=== PATIENT | male | born 1935 | race Asian ===

== ENCOUNTER 2018-05-03 14:00 | Inpatient (IN) | payer OTHER ==
[2018-05-03] MEDS ORDERED: BIVALIRUDIN 250 MG/5 ML VIAL IV ONE (14:26)
[2018-05-03] MEDS ORDERED: IOPAMIDOL (ISOVUE-370) 150 ML BTL IV ONE (14:58)
[2018-05-03] MEDS ORDERED: CLOPIDOGREL BISULFATE 75 MG TAB ONE (15:28)
[2018-05-03] MEDS ORDERED: ONDANSETRON DISINTEGRATING 4 MG TAB PO PRN (17:42)
[2018-05-03] MEDS ORDERED: CLOPIDOGREL BISULFATE 75 MG TAB PO ONE (17:45)
--- NOTE | 2018-05-03 19:34 | CPIP ---
[f rep st] INVASIVE CARDIAC PROCEDURE DATE OF PROCEDURE: 05/03/2018 PROCEDURE PERFORMED: 1. Selective coronary angiography. 2. Left heart catheterization. 3. Left ventriculogram. 4. Percutaneous transluminal coronary angioplasty and stent placement of the left anterior descending with the use of a 3.0 x 16 Synergy drug-eluting stent. 5. Percutaneous transluminal coronary angioplasty and stent placement of the left circumflex with the use of a 3.0 x 28 Synergy drug-eluting stent. 6. A TR band arteriotomy repair. This was a right radial artery approach. COMPLICATIONS: None. PROCEDURE IN DETAIL: After informed consent was obtained verbally given the urgent and emergency status of the situation, the patient was taken emergently from the emergency department room #2 to the cardiac catheterization laboratory where the region of the right groin and right wrist were cleaned, prepped, and draped in sterile fashion. Approximately 3 cc of 1% lidocaine was used for local anesthesia. A 6-[place] slender sheath was placed in the right radial artery and the patient then underwent the previously mentioned diagnostic procedure with the use of JL4 and R4 curved coronary catheters. Ultimately, 6- [place] JL4 and 6-[place] JR4 guiding catheters were also utilized. A standard pigtail catheter was used for left heart catheterization and standard over-the- wire exchange technique was utilized for all catheter exchanges. The left main coronary lumen is approximately 8 mm in size with 30% stenosis in the ostial takeoff from the left main coronary cusp. The left main bifurcates into an LAD and circumflex system. The circumflex vessel is approximately 3 mm in size proximally, giving rise to important obtuse marginal branch and has a 90 % obstruction in its distal segment with evidence of DEEP-3 flow. The LAD arises in its usual location and gives rise to an early diagonal branch which serves as a functional ramus vessel. The 2nd diagonal vessel is actually 100% occluded. The LAD proper is 100% occluded on the initial injections with initially DEEP 0 flow and with 2nd injections, there was DEEP 1 flow with a 99% obstruction of the LAD. We turned our attention to the lesion in question. The lesion was crossed with the use of a 6-[place] JL4 guide catheter and a 0.014 Intuition wire. The vessel was ballooned open with a 2-0 x 16 Emerge balloon and was subsequently stented with a 3.0 x 16 Synergy drug-eluting stent with excellent angiographic result, 0% residual stenosis status post PTCA and stent placement. We did attempt to reopen the diagonal proximally. However, the LAD antegrade flow was limited and becoming less brisk and, therefore, I felt it was best to proceed with stenting of the LAD. We then turned our attention to the left circumflex. The same Intuition wire was advanced across the 90% lesion in the distal circumflex and was ballooned up with a 2-0 x 15 Emerge balloon. The vessel was then stented with a 3.0 x 28 Synergy drug-eluting stent with a 5% residual stenosis status post PTCA and stent placement. There was DEEP 3 flow pre and post. A 6-[place] JR4 guiding catheter was used for gaining access to the right coronary artery which is dominant giving rise to posterior descending and 2 posterolateral ventricular branches. There was 60% to 70% stenosis in the mid right coronary artery, which we elected not to intervene upon at the present time because it did appear to be a chronic lesion. The patient underwent left heart catheterization demonstrating elevated left ventricular end-diastolic pressure measured at 26 mmHg. The patient underwent left ventriculogram in the RING projection, demonstrating preserved left ventricular systolic function with mild anterolateral wall motion abnormalities and mild anterior wall hypokinesis. Overall ejection fraction was preserved at 60%. IMPRESSION: 1. Successful acute infarction angioplasty for the patient with severe white earth vessel coronary disease. The residual stenosis of the left anterior descending stented segment was 5%. The proximal diagonal vessel was not reopened. 2. Successful angioplasty and stent implantation of the left circumflex. There is residual disease in the mid right coronary artery as previously described in the body of this report. The patient has overall relatively well preserved ejection fraction at the present time. The patient should be admitted to the ICU for monitoring of his rhythm. The patient will require Inspira as an aldosterone antagonist given the anterior location of his NM and the elevated LVEDP suggestive of threatened heart failure. The patient will benefit from a beta kassi and ARB medication. We may have to drop off the Norvasc for blood pressure associated reasons and the atorvastatin 40 will be continued. Copy requested to: [facility] /[id number]/MODL MTDD
--- NOTE | 2018-05-03 19:34 | GHP ---
[f rep st] HISTORY AND PHYSICAL CHIEF COMPLAINT: "I am having chest tightness." HISTORY OF PRESENT ILLNESS: The patient has a history of chronic pain, hypertension, dyslipidemia, and began to have discomfort and tightness in the middle of his chest last night. His noticed that he was uncomfortable. He complained that he had developed indigestion in the late evening yesterday and by mid morning, began to have relatively severe chest tightness and pressure. His , who is a retired nurse, noticed that he was clammy and sweaty and then called 911. The patient presented via EMS ambulance to the [facility] where an EKG was obtained en route demonstrating right bundle branch block and acute ST-segment elevation injury pattern in the anterior lateral leads. The patient was then transported emergently to the [facility] where I was asked to see the patient for a cardiac alert. At the time of my arrival, the patient was somewhat stoic, but obviously uncomfortable. MEDICATIONS: Include: 1. Morphine 15 mg p.o. q.6 hours as needed for pain. 2. Atorvastatin 40 mg p.o. daily. 3. Metoprolol extended release 25 mg p.o. daily. 4. Amlodipine 10 mg p.o. daily. 5. Losartan 100 mg p.o. daily. 6. Pradaxa 150 p.o. twice daily. ALLERGIES: He is not known to be allergic to medications. PAST MEDICAL HISTORY: Significant for: 1. Hypertension. 2. Dyslipidemia. 3. Paroxysmal atrial fibrillation. 4. Coronary artery disease. PAST SURGICAL HISTORY: Noncontributory. FAMILY HISTORY: Noncontributory. SOCIAL HISTORY: Pertinent for the fact that he is a retired sql programmer analyst, lives in a private residence with his of many years. He is a former smoker, but quit many years ago. He does not abuse alcohol or illicit drugs. PHYSICAL EXAMINATION: VITAL SIGNS: His blood pressure was 118/72, his pulse was 56 and regular, respirations 16 unlabored. Occasional PVCs were present. NECK: Reveals no JVD. HEART: Reveals normal S1 and S2 without S3, S4. He does have a soft systolic murmur. LUNGS: Clear to auscultation bilaterally. ABDOMEN: Benign with positive bowel sounds. It is nondistended, nontender. EXTREMITIES: Warm, dry, and well perfused without significant peripheral edema. LABORATORY STUDIES: Pending because of a power outage here at the hospital and difficulty with obtaining laboratory reports. The EKG demonstrates sinus bradycardia with acute ST-segment elevation infarction involving the anterior lateral leads V1 through V6 with associated right bundle branch block. It is not known if the right bundle branch block is new. IMPRESSION AND PLAN: Acute anterolateral ST-segment elevation infarction. The patient would be best served with a primary interventional strategy to reopen his coronary. I have discussed the risks and benefits of this procedure with the patient who understands and is willing to proceed as planned. I would recommend a radial approach given the fact that the patient is on active anticoagulation with Pradaxa 150 p.o. twice daily. /[id number]/MODL MTDD
[2018-05-03 20:02] LABS: CREATINE KINASE 146 IU/L (0-224)
[2018-05-03 20:11] LABS: PLATELET COUNT 161 10^3/uL (150-400)
[2018-05-03 20:19] LABS: INR 1.56 (0.83-1.16)
[2018-05-03] MEDS: CARVEDILOL 3.125 MG TAB PO SCH ×2 (21:34→21:52)
[2018-05-03] MEDS: ASPIRIN EC 325 MG TAB PO SCH (21:52)
[2018-05-03] MEDS: ATORVASTATIN CALCIUM 40 MG TAB PO SCH (21:52)
[2018-05-03] MEDS: LOSARTAN POTASSIUM 50 MG TAB PO SCH (21:52)
[2018-05-03] MEDS: EPLERENONE 25 MG TAB PO SCH (22:06)
[2018-05-04 00:53] LABS: CREATINE KINASE 694 IU/L (0-224)
[2018-05-04 06:40] LABS: CREATINE KINASE 472 IU/L (0-224)
--- NOTE | 2018-05-04 06:57 | PDMN ---
Medical Necessity Medical necessity: MCG M230 UT- 2 days acute STEMI - pt taken urgently to catheterization laboratory technician - PCI to LAD, L circ., TR band arteriotomy repair,
[2018-05-04] MEDS: ATORVASTATIN CALCIUM 40 MG TAB PO SCH (08:32)
[2018-05-04] MEDS: CLOPIDOGREL BISULFATE 75 MG TAB PO SCH (08:32)
[2018-05-04] MEDS: LOSARTAN POTASSIUM 50 MG TAB PO SCH (08:32)
[2018-05-04] MEDS: ASPIRIN EC 325 MG TAB PO SCH (08:32)
[2018-05-04] MEDS: EPLERENONE 25 MG TAB PO SCH (08:32)
[2018-05-04] MEDS: CARVEDILOL 3.125 MG TAB PO SCH ×2 (08:32→17:22)
--- NOTE | 2018-05-04 10:38 | PDCARPN ---
Cardiology Progress Note Chief Complaint: CP Assessment/Plan: Assessment: The patient is a 83 y/o M who was admitted by cardiac alert and found to be having a acute anterolateral MD s/p stenting to the LAD and LCX. His troponin peaked at 10.7 and trended down to 10.9 this morning. He denies any further chest discomfort and has remained in NSR by tele. He has a history of PAF and was on Pradaxa for anticoagulation which is currently on hold. He is a [facility] patient. Plan: 1. Acute anterolateral STEMI- s/p stenting to the LAD and LCX. He will continue Aspirin and Plavix. He was started on Coreg, Inspra, and Losartan and tolerating the medications well. Echo is pending. 2. HLP- continue Lipitor 3. PAF- Likely resume Pradaxa tomorrow morning. Transfer to PCU. 05/04/18 10:40 Subjective: He denies any further CP, SOB, or palpitations. He has no complaints. Objective: Vital Signs (8 Hrs) Temp Pulse Resp BP Pulse Ox 05/04/18 08:00 37.1 C 68 20 106/64 93 05/04/18 07:00 59 L 20 129/64 H 92 05/04/18 05:00 68 18 119/61 90 L 05/04/18 04:00 36.9 C 58 L 18 126/67 H 91 L 05/04/18 03:00 59 L 18 116/59 L 92 Intake/Output (24 Hrs) 05/03/18 05/04/18 05/05/18 05:59 05:59 05:59 Intake Total 1000 Output Total 2150 550 Balance -1150 -550 Intake: Oral (ml) 1000 Output: Urine (ml) 2150 550 Urinal 2150 550 Other: Weight 93 kg Number of Voids Urinal 1 1 Result Diagrams: 05/03/18 14:00 05/03/18 14:00 Cardiac Labs: Cardiac Lab Results (72 Hrs) 05/04/18 05/04/18 05/03/18 05:20 00:00 21:30 CK-MB (CK-2) Fraction 30.80 H 46.40 H Troponin I 10.900 H 17.700 H Telemetry: NSR without arrhythmias. - Physical Exam Constitutional: no apparent distress Cardiovascular: regular rate and rhythm, no murmurs, no rubs, other (right wrist is clean intact without infection.) Respiratory: clear to auscultate bilat, no crackles, no wheezes Skin: no edema Neurologic: AAOx3 ICD10 Worksheet Patient Problems: Problems Problem Status Onset Chest pain Acute
--- NOTE | 2018-05-04 11:44 | ECHO ---
[email or web address] [address] [address] Main: [phone] Echocardiography Examination Transthoracic Name: JASON CARBAJAL MR#: [id number] Study Date: 05/04/2018 Study Time: 07:44 AM Date of : 1935 Age: 83 year(s) Height: 205.7 cm (81 in.) Weight: 92.99 kg (205 lb.) BSA: 2.34 m2 Gender: Male Examination: Echo Contrast: Image Quality: Adequate Rhythm: Heart Rate: BP: 129 mmHg/64 mmHg Indication: Routine post STEMI Procedure Staff Referring Physician: Emt I/85: Agnes Vasquez [facility] Reading Physician: Giacomo Garcia MD Requesting Provider: Ordering Physician: Giacomo Garcia MD Indication: Routine post STEMI Measurements Chambers AV/MV Label Value Normal Value Label Value Normal Value EF lower range (%) 60 % AR PHT 0.52 s EF upper range (%) 65 % AR PHT 519 ms LVDd, 2D 5.5 cm (4.2cm - 5.9cm) AR Vmax 3.98 m/s LVEF, BP 66 % (55% - 70%) AV PGmean 6 mmHg LVEF, MOD2 68 % (55% - 70%) AV Vmax 1.7 m/s LVEF, MOD4 63 % (55% - 70%) MV A Vmax 0.78 m/s LA Volume, A4C 50 ml (16ml - 34ml) MV E' lateral 0.06 m/s LAD Index, 2D 1.62 cm/m2 MV E' mean 0.06 m/s LADs, 2D 3.8 cm (3cm - 4cm) MV E' septal 0.06 m/s LAESV index, MOD4 21.4 ml/m2 MV E Vmax 0.57 m/s Additional Vessels MV E/A 0.73 Label Value Normal Value MV E/E' lateral 9.3 AoRoot, MM 3.5 cm (2.2cm - 3.7cm) MV E/E' mean 9.5 MV E/E' septal 10.1 (0.45 - 1.25) TV/PV Label Value Normal Value RA Pressure 5 mmHg RVSP 40 mmHg TR Pmax 35 mmHg Patient: JASON CARBAJAL Study Date: 05/04/2018 Page 1 of 3 07:44 AM TR Vmax 2.96 m/s Conclusions The findings are consistent with recent anteroseptal KS s/p acute infarct angioplasty and stent implantation. No evidence of early complication post KS. Left Ventricle: LV apical septal/inferior/mid inferoseptal mitchell appears akinetic. All LV remaining segments have normal segmental motion.. EF range is estimated at 60 % - 65 %. There is mild concentric left ventricular hypertrophy. Right Ventricle: Right ventricular systolic function is normal. Mitral Valve: Mild mitral annular calcification.. Mild mitral regurgitation. Aortic Valve: Mild aortic regurgitation is present. There is no aortic stenosis. Aortic leaflets exhibit mild calcification. Tricuspid Valve: RVSP is 40mmHG.. Mild tricuspid regurgitation. Findings Left Ventricle: LV apical septal/inferior/mid inferoseptal mitchell appears akinetic. All LV remaining segments have normal segmental motion.. Left ventricle is normal in size. The ejection fraction, measured by Simpsons method, is 66 %. EF range is estimated at 60 % - 65 %. There is mild concentric left ventricular hypertrophy. Left ventricular diastolic function parameters are normal. IVS: The septum is intact. Right Ventricle: Normal size right ventricle. Right ventricular wall thickness is normal. Right ventricular systolic function is normal. Left Atrium: The left atrium is normal in size. IAS: Normal appearing atrial septum. Right Atrium: The right atrium is normal in size. Mitral Valve: Mild mitral annular calcification.. Normal . Mild mitral regurgitation. No mitral valve stenosis. Aortic Valve: Mild aortic regurgitation is present. There is no aortic stenosis. Aortic leaflets exhibit mild calcification. Tricuspid Valve: RVSP is 40mmHG.. Tricuspid valve leaflets are normal in appearance and function. Mild tricuspid regurgitation. No tricuspid valve stenosis. Right Ventricular systolic pressure is measured at 40 mmHg. Pulmonary artery pressure normal. Pulmonic Valve: Patient: JASON CARBAJAL Study Date: 05/04/2018 Page 2 of 3 07:44 AM Pulmonic valve is poorly visualized. Pulmonic leaflets exhibit normal cuspal separation. No pulmonic valve regurgitation is evident. There is no pulmonic valve stenosis. Aorta: The aorta is normal. The aortic root size in M-mode measures 3.5 cm. Aorta Measurements AoRoot, MM is 3.5 cm. Pulmonary Artery: The pulmonary artery morphology appears normal. IVC: The inferior vena cava is normal in size and course. Pericardium: No pericardial effusion. No pleural effusion present. Exam Details Procedure Ordered: Echo Procedure Status: Routine study Image Quality: Adequate Facility Location: Cardiac Echo 1 (No Signature Object) Patient: JASON CARBAJAL Study Date: 05/04/2018 Page 3 of 3 07:44 AM [id number]
--- NOTE | 2018-05-04 16:16 | EDPHY ---
H & P Time Seen by Provider: 05/03/18 14:00 HPI/ROS: HPI Chest pain. Cardiac alert. 83-year-old male by ambulance. Cardiac alert called in the field secondary to contiguous ST elevation on EKG. Chest pain last night at 9:30 p.m., resolved then came back this morning. No prior history of coronary artery disease. History of hypertension and hyperlipidemia. Patient's chest pain resolved on arrival to the emergency department. Given aspirin in the field. ROS: Constitutional: No fever, no chills. No weakness. Eyes: No discharge. No changes in vision. ENT: No sore throat. No nasal congestion or rhinorrhea. Respiratory: No cough. No shortness of breath. Cardiac: As above, no palpitations. Gastrointestinal: No abdominal pain, no vomiting, no diarrhea. Genitourinary: No hematuria. No dysuria or increased frequency with urination. Musculoskeletal: No back pain. No neck pain. No myalgias or arthralgias. Skin: No rashes. Neurological: No headache. No focal weakness or altered sensation. Past medical history: Hypertension, hyperlipidemia, chronic back pain for which she takes morphine sulfate. Social history: Nonsmoker. No alcohol. Here with his . Physical Exam: General Appearance: Alert, no distress. This patient is responding to questions appropriately and in full sentences. This patient appears well- hydrated and well-nourished. Eyes: Pupils equal and round no pallor or injection. No lid edema, erythema or injection. Respiratory: There are no retractions, lungs are clear to auscultation with good air movement bilaterally. Cardiovascular: Regular rate and rhythm. No murmur appreciated. Gastrointestinal: Abdomen is soft and nontender, no masses, bowel sounds normal. No focal tenderness at McBurney's point. No Nelson sign. Neurological: Motor sensory function is grossly intact. Cranial nerves are normal. Skin: Warm and dry, no rashes. Musculoskeletal: Neck is supple and nontender. Extremities are symmetrical. All joints range without pain or impingement. Psychiatric: No agitation. No depression. Database: EKG: EKG from field was interpreted by myself and Dr. Giacomo Garcia set he was present in the examination room on the patient's arrival. Acute injury pattern noted. Imaging: Procedures: Emergency department course: Triage vital signs reviewed. Dr. Giacomo Jose of the cardiology service was present in the examination room on the patient's arrival. EKG from the field reviewed and the patient was taken straight up to the dental lab technician. The patient's remaining emergency department course under my care was uneventful. Patient was transferred to the dental lab technician in stable condition. Differential Diagnosis: The differential diagnosis on this patient includes but is not limited to acute myocardial infarction. Pulmonary embolism, aortic dissection, pericarditis, myocarditis unlikely. This represents a partial list of diagnoses considered. These considerations are based on history, physical exam, past history, reassessment and diagnostic testing. Smoking Status: Never smoked Constitutional: Initial Vital Signs Heart Rate 79 05/03/18 14:00 Respiratory Rate 48 H 05/03/18 14:00 O2 Sat (%) 96 05/03/18 14:00 O2 Delivery Mode Room Air Allergies/Adverse Reactions: codeine Allergy (Verified 05/03/18 21:29) Other-Enter Comments Home Medications: Medication Instructions Recorded Acetaminophen [Tylenol ES 500 mg 1,000 mg PO BID 05/03/18 (*)] Atorvastatin Calcium [Lipitor 40 40 mg PO HS 05/03/18 mg (*)] Dabigatran Etexilate Mesyl 150 mg PO BID 05/03/18 [Pradaxa 150 MG (*)] Losartan Potassium 100 mg PO DAILY 05/03/18 Metoprolol Succinate Xr [Toprol Xl 25 mg PO BID 05/03/18 25 mg (*)] amLODIPine BESYLATE [Norvasc 10 mg 10 mg PO HS 05/03/18 (*)] morphINE SR [Ms Contin/Oramorph 15 15 mg PO HS 05/03/18 mg (*)] morphINE SR [Ms Contin/Oramorph 15 30 mg PO DAILY@08 05/03/18 mg (*)] Medical Decision Making - Data Points Laboratory Results: Laboratory Results 05/03/18 14:00 05/03/18 14:00 Medications Given: Aspirin Buffered (Aspirin Ec) 325 mg PO DAILY [facility] Stop: 10/30/18 17:44 Last Admin: 05/04/18 08:32 Dose: 325 mg Atorvastatin Calcium (Lipitor) 40 mg PO DAILY [facility] Stop: 10/30/18 17:44 Last Admin: 05/04/18 08:32 Dose: 40 mg Carvedilol (Coreg) 3.125 mg PO BIDMEAL [facility] Stop: 10/30/18 13:59 Last Admin: 05/04/18 08:32 Dose: 3.125 mg Clopidogrel Bisulfate (Plavix) 75 mg PO DAILY [facility] Stop: 10/31/18 08:59 Last Admin: 05/04/18 08:32 Dose: 75 mg Eplerenone (Inspra) 25 mg PO DAILY [facility] Stop: 10/30/18 17:44 Last Admin: 05/04/18 08:32 Dose: 25 mg Losartan Potassium (Cozaar) 50 mg PO DAILY [facility] Stop: 10/30/18 17:44 Last Admin: 05/04/18 08:32 Dose: 50 mg Discontinued Medications Clopidogrel Bisulfate (Plavix) 600 mg PO ONCE ONE Stop: 05/03/18 17:46 Last Admin: 05/03/18 20:22 Dose: Not Given Departure - Departure Disposition: To OP Cath/Surgery Clinical Impression: Chest pain, Acute coronary syndrome
[2018-05-04 20:38] LABS: CREATINE KINASE 339 IU/L (0-224)
[2018-05-05] MEDS ORDERED: morphINE SR 15 MG TAB PO ONE (01:45)
[2018-05-05] MEDS: ATORVASTATIN CALCIUM 40 MG TAB PO SCH (08:00)
[2018-05-05] MEDS: LOSARTAN POTASSIUM 50 MG TAB PO SCH (08:00)
[2018-05-05] MEDS: ASPIRIN EC 325 MG TAB PO SCH (08:03)
[2018-05-05] MEDS: EPLERENONE 25 MG TAB PO SCH (08:03)
[2018-05-05] MEDS: CLOPIDOGREL BISULFATE 75 MG TAB PO SCH (08:03)
[2018-05-05] MEDS: CARVEDILOL 3.125 MG TAB PO SCH (08:03)
[2018-05-05] MEDS ORDERED: CARVEDILOL 3.125 MG TAB PO ONE (10:43)
--- NOTE | 2018-05-05 11:20 | PDCARPN ---
Cardiology Progress Note Chief Complaint: Back pain Assessment/Plan: Assessment: The patient is a 83 y/o M who was admitted by cardiac alert and found to be having a acute anterolateral MD s/p stenting to the LAD and LCX. His troponin peaked at 17.7 and trended down to 10.9 this morning. He denies any further chest discomfort but had NSVT on tele last night. He has a history of PAF and was on Pradaxa for anticoagulation which is currently on hold. He is a [facility] patient. Echo shows EF of 60-65%. Plan: 1. Acute anterolateral STEMI- s/p stenting to the LAD and LCX. He will continue Aspirin and Plavix. He was started on Coreg, Inspra, and Losartan and tolerating the medications well. 2. HLP- continue Lipitor 3. PAF- Currently in NSR. Resume Pradaxa tomorrow morning and reduce Aspirin to 81mg daily. 4. NSVT- multiple runs last night. Coreg titrated. Will keep one additional day to monitor for further arrhythmias. 5. Back pain-Will resume home pain meds and try to get him a different bed. Likely d/c home tomorrow with follow up with [facility] in 1-2 weeks. 05/05/18 11:27 Subjective: He denies any CP or SOB but is complaining of back pain related to sleeping in a uncomfortable bed. Objective: Vital Signs (8 Hrs) Temp Pulse Resp BP Pulse Ox 05/05/18 08:03 101 H 142/83 H 05/05/18 08:00 37.1 C 98 20 128/73 H 94 05/05/18 03:51 36.8 C 90 16 146/85 H 96 Intake/Output (24 Hrs) 05/04/18 05/05/18 05/06/18 05:59 05:59 05:59 Intake Total 1000 700 Output Total 2150 550 Balance -1150 150 Intake: Oral (ml) 1000 700 Output: Urine (ml) 2150 550 Urinal 2150 550 Other: Weight 93 kg 93 kg Number of Voids Urinal 1 1 Result Diagrams: 05/03/18 14:00 05/03/18 14:00 Cardiac Labs: Cardiac Lab Results (72 Hrs) 05/04/18 05/04/18 05/04/18 19:15 14:25 05:20 CK-MB (CK-2) Fraction 16.60 H 30.80 H Troponin I 5.170 H 7.030 H 10.900 H 05/04/18 05/03/18 00:00 21:30 CK-MB (CK-2) Fraction 46.40 H Troponin I 17.700 H Telemetry: multiple runs of NSVT - Physical Exam Constitutional: no apparent distress Cardiovascular: regular rate and rhythm, no murmurs, no rubs, no gallops Respiratory: clear to auscultate bilat, no crackles, no wheezes Skin: no edema Neurologic: AAOx3 ICD10 Worksheet Patient Problems: Problems Problem Status Onset Acute coronary syndrome Acute Chest pain Acute
[2018-05-05] MEDS: morphINE SR 30 MG TAB PO SCH (11:41)
[2018-05-05] MEDS: ACETAMINOPHEN 500 MG TAB PO SCH ×2 (11:41→20:40)
--- NOTE | 2018-05-05 12:05 | CPEKG ---
Test Reason : acute anterior RI Blood Pressure : / mmHG Vent. Rate : 052 BPM Atrial Rate : 051 BPM P-R Int : 221 ms QRS Dur : 149 ms QT Int : 483 ms P-R-T Axes : -25 -79 000 degrees QTc Int : 450 ms Sinus rhythm Prolonged HI interval RBBB and LAFB Probable anteroseptal infarct, old Confirmed by Giacomo Garcia ([id number]) on 05/05/2018 12:05:38 PM Referred By: Giacomo Garcia Confirmed By:Giacomo Garcia
[2018-05-05] MEDS ORDERED: PNEUMOC 13-VAL CONJ-DIP CRM/PF 0.5 ML SYR (PREVNAR 13) IM ONE (12:57)
--- NOTE | 2018-05-05 14:34 | CPEKG ---
Test Reason : OPEN Blood Pressure : / mmHG Vent. Rate : 062 BPM Atrial Rate : 063 BPM P-R Int : 214 ms QRS Dur : 144 ms QT Int : 455 ms P-R-T Axes : -51 -86 -01 degrees QTc Int : 462 ms Sinus or ectopic atrial rhythm Borderline prolonged SC interval Right bundle branch block Probable inferior infarct, age indeterminate Probable anteroseptal infarct, recent Confirmed by Giacomo Garcia ([id number]) on 05/05/2018 2:34:22 PM Referred By: Giacomo Garcia Confirmed By:Giacomo Garcia
--- NOTE | 2018-05-05 14:41 | ASMTCMCOM ---
CM Note CM Note Notes: 05/05/2018 Case Management Note Pt admitted for cardiac alert, taken to industrial laborer from ED. Pt has history of HTN and hyperlipidemia. There are no therapy evals ordered today. Met w/pt today to discuss d/c needs. Pt lives with his Diana. His 2 sons, Jabari and Fernando, live in [place]. PCP is Dr. Alfredo with [facility] in the [place] office. Notified [facility] repatriation [phone] of admit at pt request. If pt requires home care, must use [facility] contracted home care agencies. Case Management d/c poc: anticipating independent with follow up as directed. Case Management available if needs change. Date Signed: 05/05/2018 02:40 PM Electronically Signed By:Gudelia Hunter RN
[2018-05-05] MEDS: CARVEDILOL 6.25 MG TAB PO SCH (17:35)
[2018-05-05] MEDS ORDERED: morphINE SR 15 MG TAB PO SCH (21:00)
[2018-05-06] MEDS ORDERED: DABIGATRAN ETEXILATE MESYL 150 MG CAP PO SCH (09:00)
[2018-05-06] MEDS ORDERED: ASPIRIN 81 MG CHEWABLE TAB PO SCH (09:00)
[2018-05-06] MEDS: ACETAMINOPHEN 500 MG TAB PO SCH (09:13)
[2018-05-06] MEDS: LOSARTAN POTASSIUM 50 MG TAB PO SCH (09:13)
[2018-05-06] MEDS: EPLERENONE 25 MG TAB PO SCH (09:13)
[2018-05-06] MEDS: CLOPIDOGREL BISULFATE 75 MG TAB PO SCH (09:13)
[2018-05-06] MEDS: ATORVASTATIN CALCIUM 40 MG TAB PO SCH (09:13)
[2018-05-06] MEDS: CARVEDILOL 6.25 MG TAB PO SCH (09:13)
[2018-05-06] MEDS: morphINE SR 30 MG TAB PO SCH (09:13)
[2018-05-06 12:10] VITALS: BP 116/73
--- NOTE | 2018-05-06 13:20 | ASMTLACE ---
LACE Length of stay for Answers: 2 days current admission Acuity / Level of Answers: Yes Care: Did the patient have an inpatient admission? Comorbidities - select Answers: Coronary Artery Disease all that apply Opioid dependence / Chronic pain Other Notes: HTN; AFib # of Emergency department Answers: 1-2 visits in the last 6 months Score: 13 Date Signed: 05/06/2018 01:20 PM Electronically Signed By:Gudelia Hunter RN
--- NOTE | 2018-05-06 13:30 | ASDISCHSUM ---
Discharge Information Plan Status:Home with No Needs Medically Cleared to Leave:05/06/2018 Discharge Date:05/06/2018 CM D/C Disposition:Home, Routine, Self-Care ADT D/C Disposition:Home, Routine, Self-Care Projected Discharge Date:05/06/2018 Transportation at D/C:Friend Discharge Delay Reason: Follow-Up Date:05/06/2018 Discharge Slot: Final Diagnosis: Placement Information Patient Contact Information Contact Name:JANETH Relationship: Address:[address] Work Phone: City:[place] Alternate Phone: State/Zip Code:[place] [address] Email: Financial Information Financial Class:Medicare Advantage Plans Primary Plan Desc:[employer] [place] IP Primary Plan Number:[id number] Secondary Plan Desc: Secondary Plan Number: Assessment Information LACE LACE Length of stay for Answers: 2 days current admission Acuity / Level of Answers: Yes Care: Did the patient have an inpatient admission? Comorbidities - select Answers: Coronary Artery Disease all that apply Opioid dependence / Chronic pain Other Notes: HTN; AFib # of Emergency department Answers: 1-2 visits in the last 6 months Score: 13 Date Signed: 05/06/2018 01:20 PM Electronically Signed By:Gudelia Hunter RN [facility] CM Progress Note CM Note CM Note Notes: 05/05/2018 Case Management Note Pt admitted for cardiac alert, taken to production laborer from ED. Pt has history of HTN and hyperlipidemia. There are no therapy evals ordered today. Met w/pt today to discuss d/c needs. Pt lives with his Diana. His 2 sons, Jabari and Fernando, live in [place]. PCP is Dr. Alfredo with [facility] in the [place] office. Notified [facility]ation [phone] of admit at pt request. If pt requires home care, must use [facility] agencies. Case Management d/c poc: anticipating independent with follow up as directed. Case Management available if needs change. Date Signed: 05/05/2018 02:40 PM Electronically Signed By:Gudelia Hunter RN Case Management Discharge Plan Note Case Management Discharge Discharge Order Complete? Answers: Yes Patient to Obtain Answers: via Family Medications Transportation Arranged Answers: Family/Friends Family Notified Answers: Yes Notes: here Discharge Comments Notes: 05/06/2018 Case Management Note Pt to discharge home with and follow up as directed. Encouraged family to contact [facility] if there were questions about coverage. Date Signed: 05/06/2018 01:29 PM Electronically Signed By:Gudelia Hunter RN Intervention Information Intervention Type:*IM-Signed Date of Service:05/05/2018 03:38 PM Patient Type:Inpatient Staff Member:Amaya Feliciano Hours: Discipline: Severity: Comment:
--- NOTE | 2018-05-06 13:58 | GDS ---
[f rep st] DISCHARGE SUMMARY ADMIT DIAGNOSES: 1. Chest pain. 2. Hypertension. 3. Dyslipidemia. DISCHARGE DIAGNOSES: 1. Coronary artery disease, status post percutaneous coronary intervention. 2. Hypertension. 3. Hyperlipidemia. COURSE OF HOSPITALIZATION: This gentleman came in through the emergency room claiming chest tightness. He at first thought it was indigestion. However, this continued through the night. His , who is a retired nurse, determined that he needed to be transported to the nearest emergency room and called 911. He is a [facility] patient. However, [facility] was 8 minutes closer, and he was taken to the emergency room at [facility]. He was found to have a right bundle branch block with acute ST-segment elevation injury pattern in the anterior leads. He was taken directly to the cardiac senior cytogenetics laboratory director by Dr. Giacomo Garcia where he did find significant blockage, placing a stent to the circumflex and LAD. He does have a remote history of atrial fibrillation and has history of nonsustained VT. After stent placement, he was taken to his hospital room for overnight observation where he has done well. He is anxious for discharge. His feels comfortable taking him home. Of note, he did have a peak troponin of 17 and admitted with an acute anterolateral UT. At this time, he currently is stable for discharge. DISCHARGE MEDICATIONS: Tylenol extended strength 1000 mg twice daily, not to exceed 3000 mg daily; morphine SR 30 mg daily at 8:00 a.m., morphine SR 15 mg at h.s.; Norvasc 10 mg at h.s.; Lipitor 40 mg h.s.; losartan 100 mg daily; Pradaxa 150 mg twice daily; Plavix 75 mg daily; Coreg 6.25 mg twice daily; aspirin 81 mg daily; Inspra 25 mg daily. EXAM ON DAY OF DISCHARGE: VITAL SIGNS: Blood pressure 116/73, heart rate 71, oxygen saturation 90. EKG showed a normal sinus rhythm with a first-degree block. HEART: Rate regular. No murmurs, rubs, gallops. LUNGS: Sounds are clear to auscultation. No wheezes, rales, or rhonchi. EXTREMITIES: Right wrist pulses intact with 2+ pulses and good capillary refill. No peripheral edema. FOLLOWUP: He will follow up with [facility]. He is asked to call [facility] on Tuesday to set up followup appointment within the next 7-10 days. Reports will be sent to [facility] regarding the cardiac angiogram. Wrist site instructions were given verbally and written. He understands not to lift anything heavier than 10 pounds for the next 48 hours and not to dunk his right wrist in water. Okay to shower. At this time, he currently is stable for discharge. /[id number]/MODL MTDD
== END 2018-05-06 14:08 | disposition home or self-care (01) | DRG 247 ==
LOC: F2N 15:45 → F2W 05-04 12:35
PROVIDERS: ADMIT Internal Medicine Cardiovascular Disease; ATTEND Internal Medicine Cardiovascular Disease
DX: I21.09 ST elevation (STEMI) myocardial infarction involving other coronary artery of anterior wall (principal); I25.10 Atherosclerotic heart disease of native coronary artery without angina pectoris; I45.10 Unspecified right bundle-branch block; I48.0 Paroxysmal atrial fibrillation; I10 Essential (primary) hypertension; E78.5 Hyperlipidemia, unspecified; M54.9 Dorsalgia, unspecified; Z87.891 Personal history of nicotine dependence
CPT/HCPCS: C1725; C1769; C1874; C1887; C9600; C9606; G0008; G0009; J0583; Q9967